=== PATIENT | female | born 1940 | race Caucasian/White ===

== ENCOUNTER 2020-07-17 11:52 | Emergency (ER) | payer MEDICARE, OTHER ==
[~2020-07-17] VITALS: Ht 154.9 cm; Wt 120.2 kg
[~2020-07-17 11:52] MED LIST: ALPRAZOLAM 0.50.5 MG; ASPIR 8181 MG PO; CELEXA 20 MG TA20 M1; CIPRO500 MG PO; CLONAZEPAM 1 MG1 M1; COUMADIN7.5 MG; CYMBALTA20 MG PO; DIABETA 5MG TABL5 MG; DIABETES MEDICATION; DITROPAN XL15 MG PO; EFFEXOR XR150 MG; FLAGYL500 MG PO; GLUCOPHAGE500 MG; HIGH CHOLESTEROL; HTN MED; IBUPROFEN 800800 M1 PO; JANUVIA100 MG PO; LEVEMIR SUBQ; LEVEMIR100 UNIT/1 SUBQ; LOSARTAN POTASS50 MG PO; MAG-OX 400 TAB400 M1 PO; RANITIDINE 150150 M1 PO; SEROQUEL 50 MG50 MG PO; ULTRAM 50MG TAB50 MG PO; VITAMIN D; VYTORIN 10-801 EACH PO; WARFARIN; ZYRTEC 10 MG TA10 M1
[2020-07-17 12:21] LABS: URINE BILIRUBIN NEGATIVE (Negative); URINE BLOOD 3+ (Negative); URINE CLARITY CLEAR; URINE COLOR YELLOW; URINE GLUCOSE-RANDOM 1+ (Negative); URINE KETONES NEGATIVE (Negative); URINE NITRITE-REFLEX NEGATIVE (Negative); URINE PROTEIN 2+ (Negative); URINE UROBILINOGEN 0.2 E.U./dl (0.2-1.0)
[2020-07-17 12:28] LABS: URINE LEUKOCYTES-REFLEX 2+ (Negative)
[2020-07-17 12:44] LABS: BACTERIA-REFLEX 1-9 Few /HPF (None Seen); CASTS None Seen /LPF (None Seen); CRYSTALS None Seen /LPF (None Seen); SQUAMOUS 0-3 Few /LPF (0-3); URINE RBC 0-2 Rare /HPF (0-2); URINE WBC-REFLEX 0-5 Rare /HPF (0-5)
[2020-07-17 12:59] LABS: HEMATOCRIT 38.1 % (37.0-47.0); HEMOGLOBIN 12.8 gm/dL (12.0-15.0); MCH 31.8 pg (26.0-34.0); MCHC 33.5 g/dL (28.0-37.0); NUCLEATED RBCS 0 /100WBC; PLATELET COUNT* 276 thou/uL (150-400); RBC 4.01 mil/uL (4.20-5.00); RDW-CV 12.9 % (10.5-14.5); WBC 15.6 thou/uL (4.0-11.0)
[2020-07-17 13:12] LABS: CALCIUM 9.3 mg/dL (8.5-10.1); CREATININE 2.2 mg/dL (0.6-1.3)
[2020-07-17 13:17] LABS: ALBUMIN 3.3 g/dL (3.4-5.0); TOTAL BILIRUBIN 0.5 mg/dL (<0.1-1.0); TOTAL PROTEIN 7.7 g/dL (6.4-8.2); URIC ACID* 8.3 mg/dL (2.6-7.2)
[2020-07-17 13:18] LABS: ABSOLUTE LYMPHOCYTES 0.9 thou/uL (0.8-5.3); ABSOLUTE MONOCYTES 0.3 thou/uL (0.0-1.2); ABSOLUTE NEUTROPHILS 14.4 thou/uL (1.6-8.1); PLATELET ESTIMATE ADEQUATE
[2020-07-17 18:02] VITALS: BP 114/48
== END 2020-07-17 18:03 | disposition short-term general hospital (02) ==
LOC: M.ERS 11:52
PROVIDERS: Nurse Practitioner Family
DX: A41.9 Sepsis, unspecified organism (principal); N17.9 Acute kidney failure, unspecified; N39.0 Urinary tract infection, site not specified; M10.071 Idiopathic gout, right ankle and foot; N28.89 Other specified disorders of kidney and ureter; R74.8 Abnormal levels of other serum enzymes; I10 Essential (primary) hypertension; E11.9 Type 2 diabetes mellitus without complications; M79.7 Fibromyalgia; Z20.828 Contact with and (suspected) exposure to other viral communicable diseases; Z90.710 Acquired absence of both cervix and uterus; Z85.41 Personal history of malignant neoplasm of cervix uteri; Z86.718 Personal history of other venous thrombosis and embolism; Z88.6 Allergy status to analgesic agent